=== PATIENT | female | born 1995 | race Two or more races ===

== ENCOUNTER 2018-03-20 11:18 | Emergency (ER) | payer MEDICAID, OTHER ==
[~2018-03-20] VITALS: Ht 170.2 cm; Wt 129.7 kg
[2018-03-20 11:33] VITALS: BP 137/83
== END 2018-03-20 12:08 | disposition home or self-care (01) ==
LOC: ED 11:55
DX: H10.89 Other conjunctivitis (principal)
CPT/HCPCS: 99283